=== PATIENT | male | born 1970 | race Caucasian/White ===

== ENCOUNTER 2017-11-17 01:03 | Emergency (ER) | payer OTHER ==
[~2017-11-17] VITALS: Ht 175.3 cm; Wt 68.0 kg
[2017-11-17] MEDS ORDERED: LANTUS100 UNIT/M SUBQ (01:21)
[2017-11-17] MEDS ORDERED: HUMALOG100 UNIT/1 (01:21)
[2017-11-17 02:00] LABS: URINE BILIRUBIN NEGATIVE (Negative); URINE BLOOD 1+ (Negative); URINE CLARITY CLEAR; URINE COLOR YELLOW; URINE GLUCOSE-RANDOM 2+ (Negative); URINE KETONES NEGATIVE (Negative); URINE LEUKOCYTES-REFLEX NEGATIVE (Negative); URINE NITRITE-REFLEX NEGATIVE (Negative); URINE PROTEIN 1+ (Negative); URINE UROBILINOGEN 0.2 E.U./dl (0.2-1.0)
[2017-11-17 02:07] LABS: AMP/METHAMP POSITIVE (Negative); BARBITURATES Negative (Negative); BENZODIAZEPINES Negative (Negative); COCAINE Negative (Negative); METHADONE Negative (Negative); OPIATES Negative (Negative); PCP Negative (Negative); THC POSITIVE (Negative)
[2017-11-17 02:10] LABS: ABSOLUTE BASOPHILS 0.1 thou/uL (0.0-0.2); ABSOLUTE EOSINOPHILS 0.2 thou/uL (0.0-0.7); ABSOLUTE LYMPHOCYTES 1.9 thou/uL (0.8-5.3); ABSOLUTE NEUTROPHILS 6.8 thou/uL (1.6-8.1); BASOPHILS 0.8 %; EOSINOPHILS 1.5 %; MCH 32.6 pg (26.0-34.0); MCHC 33.2 g/dL (28.0-37.0); MCV 98.3 fL (80.0-100.0); MONOCYTES 9.7 %; MPV 7.8 fl. (7.2-11.1); NUCLEATED RBCS 0 /100WBC; PLATELET COUNT* 298 thou/uL (150-400); RBC 3.36 mil/uL (4.50-6.00); RDW-CV 13.7 % (10.5-14.5); WBC 9.9 thou/uL (4.0-11.0)
[2017-11-17 02:13] LABS: BE 1.7 mmol/L (-2 to +3); PCO2 39.5 mmHg (35.0-45.0); pH 7.436 (7.340-7.450)
[2017-11-17 02:19] LABS: CALCIUM 8.8 mg/dL (8.5-10.1); CREATININE 1.4 mg/dL (0.6-1.3); POTASSIUM 3.9 mmol/L (3.5-5.1)
[2017-11-17 02:36] LABS: ALBUMIN 3.7 g/dL (3.4-5.0); TOTAL BILIRUBIN 0.2 mg/dL (<0.1-1.0); TOTAL PROTEIN 8.2 g/dL (6.4-8.2)
[2017-11-17 02:51] LABS: CASTS None Seen /LPF (None Seen); SQUAMOUS 0-3 Few /LPF (0-3)
[2017-11-17 02:52] LABS: BACTERIA-REFLEX 1-9 Few /HPF (None Seen); CRYSTALS None Seen /LPF (None Seen); URINE RBC 3-10 Few /HPF (0-2); URINE WBC-REFLEX 6-15 Few /HPF (0-5)
[2017-11-17] MEDS ORDERED: BACTRIM DS TAB1 EACH PO (04:58)
[2017-11-17] MEDS ORDERED: KEFLEX500 M1 PO (04:58)
[2017-11-17 05:15] VITALS: BP 132/70
[2017-11-17 11:09] LABS: GLYCOHEMOGLOBIN (HGB A1C) 11.3 % (4.8-5.6)
== END 2017-11-17 05:15 | disposition left against medical advice (07) ==
LOC: M.ERS 01:03
PROVIDERS: Personal Emergency Response Attendant
DX: E10.65 Type 1 diabetes mellitus with hyperglycemia (principal); Z48.01 Encounter for change or removal of surgical wound dressing; E03.9 Hypothyroidism, unspecified; Z79.899 Other long term (current) drug therapy

== ENCOUNTER 2018-05-10 16:41 | Observation (INO) | payer OTHER ==
[~2018-05-10] VITALS: Ht 175.3 cm; Wt 65.8 kg
[~2018-05-10 16:41] MED LIST: BACTRIM DS TAB1 EACH PO; HUMALOG100 UNIT/1; KEFLEX500 M1 PO; LANTUS100 UNIT/M SUBQ
[2018-05-10 17:04] VITALS: BP 136/93
[2018-05-10 17:32] LABS: ABSOLUTE BASOPHILS 0.1 thou/uL (0.0-0.2); ABSOLUTE EOSINOPHILS 0.1 thou/uL (0.0-0.7); ABSOLUTE MONOCYTES 0.8 thou/uL (0.0-1.2); ABSOLUTE NEUTROPHILS 5.3 thou/uL (1.6-8.1); BASOPHILS 0.9 %; EOSINOPHILS 1.4 %; HEMATOCRIT 34.1 % (42.0-52.0); HEMOGLOBIN 11.6 gm/dL (14.0-18.0); LYMPHOCYTES 32.5 %; MCH 33.1 pg (26.0-34.0); MCHC 33.8 g/dL (28.0-37.0); MCV 97.7 fL (80.0-100.0); MONOCYTES 8.1 %; MPV 7.9 fl. (7.2-11.1); NUCLEATED RBCS 0 /100WBC; PLATELET COUNT* 270 thou/uL (150-400); POLYS 57.1 %; RDW-CV 13.6 % (10.5-14.5); WBC 9.3 thou/uL (4.0-11.0)
[2018-05-10 17:43] LABS: ALBUMIN 3.8 g/dL (3.4-5.0); CREATININE 2.1 mg/dL (0.6-1.3); POTASSIUM 3.8 mmol/L (3.5-5.1); TOTAL BILIRUBIN 0.3 mg/dL (<0.1-1.0); TOTAL PROTEIN 7.8 g/dL (6.4-8.2)
[2018-05-10 17:47] LABS: BE -1.4 mmol/L (-2 to +3); PCO2 37.9 mmHg (35.0-45.0); PO2 76.5 mmHg (75.0-100.0); pH 7.402 (7.340-7.450)
[2018-05-10 18:56] LABS: URINE BILIRUBIN NEGATIVE (Negative); URINE BLOOD TRACE (Negative); URINE CLARITY CLEAR; URINE COLOR YELLOW; URINE GLUCOSE-RANDOM 3+ (Negative); URINE KETONES 1+ (Negative); URINE LEUKOCYTES-REFLEX NEGATIVE (Negative); URINE NITRITE-REFLEX NEGATIVE (Negative); URINE PROTEIN NEGATIVE (Negative); URINE UROBILINOGEN 0.2 E.U./dl (0.2-1.0)
[2018-05-10 19:06] LABS: AMP/METHAMP POSITIVE (Negative); BARBITURATES Negative (Negative); BENZODIAZEPINES Negative (Negative); COCAINE Negative (Negative); METHADONE Negative (Negative); OPIATES Negative (Negative); PCP Negative (Negative); THC Negative (Negative)
[2018-05-10 21:56] VITALS: BP 124/70
[2018-05-11] VITALS: BP 153/96
[2018-05-11 04:00] VITALS: BP 134/91
[2018-05-11 08:03] VITALS: BP 127/81
--- NOTE | 2018-05-11 11:36 | EKG ---
[place] [address] ELECTROCARDIOGRAM REPORT Name: JOE COLEMAN Room: [place] [address] ADM IN .R.#: [id number] Admission: 05/10/18 Attend Phys: Aidan Gaytan MD Discharge: Date of : 72 Report #: [id number] THIS REPORT FOR: //name// [facility] Test Date: 2018-05-10 Test Time: 17:23:07 Pat Name: JOE KHOURYDIONNE Department: Room: [facility] Gender: Staff Accountant: BS : 1970 Requested By: Edenilson Nunes Order Number: [id number] MD: Moo Jones Measurements Intervals [place] Rate: 78 P: 67 NC: 172 QRS: 60 QRSD: 101 T: 76 QT: 437 QTc: 498 Interpretive Statements Sinus rhythm Low voltage, extremity leads Probable anteroseptal infarct, old Borderline repolarization abnormality Baseline wander in lead(s) V6 No previous ECG available for comparison Electronically Signed On 05-11-2018 11:35:36 CDT by Moo Jones [email or web address] <ELECTRONICALLY SIGNED> By: Moo Jones MD, FACC 05/11/18 1135 1723 1723 Moo Jones MD, FAC /EPI
[2018-05-11] MEDS ORDERED: SYNTHROID100 MC1 PO (11:43)
[2018-05-11 11:57] LABS: CALCIUM 8.3 mg/dL (8.5-10.1); CREATININE 1.5 mg/dL (0.6-1.3); MAGNESIUM 1.7 mg/dL (1.8-2.4); POTASSIUM 3.7 mmol/L (3.5-5.1)
[2018-05-11 13:19] VITALS: BP 127/81
[2018-05-11 14:44] VITALS: BP 127/81
== END 2018-05-11 14:52 | disposition home or self-care (01) ==
LOC: M.ERS 16:41 → M.TBA-ER 18:54
PROVIDERS: Internal Medicine; Nurse Practitioner Psychiatric/Mental Health; ADMIT Internal Medicine
DX: M76.72 Peroneal tendinitis, left leg (principal); R25.2 Cramp and spasm; E10.21 Type 1 diabetes mellitus with diabetic nephropathy; E10.65 Type 1 diabetes mellitus with hyperglycemia; E10.40 Type 1 diabetes mellitus with diabetic neuropathy, unspecified; I10 Essential (primary) hypertension; E87.0 Hyperosmolality and hypernatremia; E03.9 Hypothyroidism, unspecified; N17.0 Acute kidney failure with tubular necrosis; F17.210 Nicotine dependence, cigarettes, uncomplicated; Z79.4 Long term (current) use of insulin; Z79.899 Other long term (current) drug therapy

== ENCOUNTER 2018-10-10 23:51 | Emergency (ER) | payer OTHER ==
[~2018-10-10] VITALS: Ht 175.3 cm; Wt 63.5 kg
[~2018-10-10 23:51] MED LIST changes: +SYNTHROID100 MC1 PO
[2018-10-11] MEDS ORDERED: DOXYCYCLINE 10100 MG PO (00:40)
[2018-10-11 00:50] VITALS: BP 173/108
== END 2018-10-11 00:50 | disposition left against medical advice (07) ==
LOC: M.ERS 23:51
DX: L03.116 Cellulitis of left lower limb (principal); F17.200 Nicotine dependence, unspecified, uncomplicated; E11.9 Type 2 diabetes mellitus without complications; I10 Essential (primary) hypertension; E03.9 Hypothyroidism, unspecified; Z79.4 Long term (current) use of insulin